=== PATIENT | female | born 1970 | race Hispanic/Latino ===

== ENCOUNTER 2017-07-19 15:26 | Outpatient (CLI) | payer SELFPAY | END 2017-07-19 15:27 | disposition home or self-care (01) | LOC: BICMAMMO 15:26 | PROVIDERS: ATTEND Family Medicine | DX: Z12.31 Encounter for screening mammogram for malignant neoplasm of breast (principal) | CPT/HCPCS: 77067 ==

== ENCOUNTER 2018-07-28 14:20 | Outpatient (CLI) | payer BC | END 2018-07-28 14:21 | disposition home or self-care (01) | LOC: BICMAMMO 14:20 | PROVIDERS: ATTEND Family Medicine | DX: Z12.31 Encounter for screening mammogram for malignant neoplasm of breast (principal); R92.1 Mammographic calcification found on diagnostic imaging of breast; N63.10 Unspecified lump in the right breast, unspecified quadrant | CPT/HCPCS: 77063; 77067 ==

== ENCOUNTER 2018-08-06 14:38 | Outpatient (CLI) | payer BC ==
--- NOTE | 2018-08-06 15:16 | ULT ---
LIMITED RIGHT BREAST ULTRASOUND: Date: 08-06-18 Provided Clinical History: Abnormal mammogram. FINDINGS: Correlation is made with screening mammogram dated 07-28-18. Limited sonographic interrogation of the 10 o'clock position of the right breast was performed in the region of mammographic concern. There is a 1.9 cm hypoechoic oval mass with somewhat indistinct elvis ins and no definite posterior shadowing present in the right breast in this location. IMPRESSION: BIRADS category 4 - suspicious abnormality. Ultrasounded guided biopsy is recommended. 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 POS: OFF
== END 2018-08-06 14:39 | disposition home or self-care (01) ==
LOC: BICULT 14:38
PROVIDERS: ATTEND Family Medicine
DX: N63.10 Unspecified lump in the right breast, unspecified quadrant (principal)

== ENCOUNTER → 2018-08-11 | Day surgery (SDC) | payer BC ==
--- NOTE | 2018-08-11 15:59 | ULT ---
RIGHT BREAST BIOPSY WITH ULTRASOUND GUIDANCE: HISTORY: Right breast mass. COMPARISON: 08/06/2018 FINDINGS: Successful right breast biopsy. A total of three 14 gauge core biopsy samples were obtained and plac ed in formalin. A post biopsy clip was placed. Clip position is appropriate. TECHNIQUE: Consent obtained to perform a right breast biopsy with ultrasound guidance. The lesion of concern wa s identified. The skin was prepped and draped in a sterile fashion. Lidocaine 1%, buffered with sod ium bicarbonate, was used for local anesthesia. Under ultrasound guidance, a 14 gauge biopsy needle was advanced, such that the tip was adjacent to the lesion. Three core samples were obtained and tk willy directly in formalin. A post biopsy mammogram was performed. The clip was appropriately positio malorie. The patient tolerated the procedure well. No immediate or post procedure complications. IMPRESSION: Successful ultrasound-guided biopsy. POS: ADÁN
== END ==
LOC: BICULT 12:35
PROVIDERS: ATTEND Family Medicine
PROC: 0HBT3ZX Excision of Right Breast, Percutaneous Approach, Diagnostic (ICD-10-PCS; principal; 2018-08-11)
DX: C50.411 Malignant neoplasm of upper-outer quadrant of right female breast (principal); Z17.0 Estrogen receptor positive status [ER+]; Z88.8 Allergy status to other drugs, medicaments and biological substances
CPT/HCPCS: 19083; 88305; 88341; 88342

== ENCOUNTER 2018-09-08 14:33 | Outpatient (CLI) | payer BC ==
[2018-09-08 15:56] LABS: #Eosinphils 0.2 thou/uL (0.0-0.7); #Monocytes 0.6 thou/uL (0.11-0.59); #Neutrophils 4.7 thou/uL (1.40-6.50); %Basophils 0.1 % (0.0-1.0); %Eosinophils 2.5 % (0.0-10.0); %Lymphocytes 35.1 % (21.0-51.0); %Monocytes 7.5 % (0.0-10.0); %Neutrophils 54.8 % (42.0-75.0); Hemoglobin 12.3 g/dL (12.0-16.0); Mean Corpuscular HGB CONC 31.6 g/dL (32.0-36.0); Mean Corpuscular Hemoglobin 25.2 pg (27.0-31.0); Mean Corpuscular Volume 79.6 fL (78.0-98.0); Mean Platelet Volume 7.1 fL (7.4-10.4); Platelet Count 304 thou/uL (130-400); RBC Distribution Width 14.6 % (11.5-14.5); Red Blood Cell (RBC) Count 4.89 mill/uL (4.20-5.40); White Blood Cell (WBC) Count 8.6 thou/uL (4.8-10.8)
[2018-09-08 16:08] LABS: BHCG - Serum Negative (NEGATIVE); Pregs Control Background? CLEAR/WHITE (CLR/WHITE); Pregs Control Bar Appear? YES (CONTROL BAR)
[2018-09-08 16:16] LABS: ALT (SGPT) 21 U/L (8-55); AST (SGOT) 16 U/L (5-34); Albumin 4.1 g/dL (3.5-5.0); Alkaline Phosphatase 99 U/L (40-150); Anion Gap 12 mmol/L (10-20); BUN (Urea Nitrogen) 10 mg/dL (7.0-18.7); Bilirubin, Direct 0.1 mg/dL (0.1-0.3); Bilirubin, Total 0.3 mg/dL (0.2-1.2); Calc. Creatinine Clearance 0 mL/min (70-130); Calcium 9.3 mg/dL (7.8-10.44); Carbon Dioxide 24 mmol/L (22-29); Chloride 108 mmol/L (98-107); Estimated GFR-MDRD 88; Globulin 3.7 g/dL (2.4-3.5); Glucose 100 mg/dL (70-105); Potassium 4.2 mmol/L (3.5-5.1); Protein, Total 7.8 g/dL (6.0-8.3); Sodium 140 mmol/L (136-145)
--- NOTE | 2018-09-08 20:47 | EKG ---
Test Reason : Blood Pressure : / mmHG Vent. Rate : 071 BPM Atrial Rate : 071 BPM P-R Int : 124 ms QRS Dur : 076 ms QT Int : 378 ms P-R-T Axes : 061 058 024 degrees QTc Int : 410 ms Normal sinus rhythm Borderline Short CT interval Confirmed by DR. Trae PEDRO ([id number]) on 09/08/2018 8:46:46 PM Referred By: CAROL Confirmed By:DR. Trae PEDRO
== END 2018-09-08 14:34 | disposition home or self-care (01) ==
LOC: LABBT 14:33
PROVIDERS: ATTEND Internal Medicine Cardiovascular Disease
DX: Z01.818 Encounter for other preprocedural examination (principal); C50.911 Malignant neoplasm of unspecified site of right female breast
CPT/HCPCS: 80053; 80076; 84703; 85025; 93005; 93010

== ENCOUNTER 2018-09-12 06:56 | Day surgery (SDC) | payer BC ==
[2018-09-08 14:26] VITALS: BMI 37.6
--- NOTE | 2018-09-12 09:18 | MMO ---
MAMMOGRAPHICALLY GUIDED NEEDLE LOCALIZATION RIGHT BREAST: DATE: 09/12/2018. HISTORY: Malignant neoplasm of upper outer quadrant of right breast. TECHNIQUE: Signed informed consent obtained. Lateral approach selected. Breast was compressed in true lateral position with fenestrated paddle. Lateral skin of breast was prepared and draped in the usual steril e fashion. A 25-gauge needle was used to apply buffered Lidocaine superficially and deeply. A 7.5 c m Cleaton needle was advanced from lateral approach. The breast was then compressed in craniocaudal po sition. Cleaton needle tip was withdrawn to appropriate position. Wire was deployed through the needl e. The patient tolerated the procedure well. No complications. FINDINGS: The final CC projection mammogram demonstrates Cleaton needle tip and wire slightly medial to the mammo graphic lateral mass containing biopsy clip. IMPRESSION: Technically successful needle localization of right breast mass. POS: ADÁN
--- NOTE | 2018-09-12 10:16 | NM ---
NUCLEAR MEDICINE LYMPHOSCINTIGRAPHY: HISTORY: Malignant neoplasm of site of unspecified breast. FINDINGS: 0.408 mCi Technetium 99m filtered sulfur colloid was injected into the subdermal and subcutaneous tis sues in the periareolar region of the right breast. Immediate imaging demonstrates 2 foci of lymph n ode activity in the right axilla. IMPRESSION: Two sentinel lymph nodes in the right axilla demonstrate activity. POS: ADÁN
[2018-09-12] MEDS ORDERED: Lidocaine 2% PF 5 ML VIAL ONE (10:23)
[2018-09-12] MEDS ORDERED: Isosulfan Blue 50 MG/5 ML VIAL ONE (10:23)
[2018-09-12] MEDS ORDERED: Bupivacaine/Epinephrine 0.25% 30 ML VIAL ONE (10:23)
[2018-09-12] MEDS ORDERED: Meperidine HCl/PF 25 MG/ML VIAL ONE (10:46)
[2018-09-12] MEDS ORDERED: Fentanyl 100 MCG/2 ML VIAL ONE ×2 (10:46→12:14)
[2018-09-12] MEDS ORDERED: Famotidine/PF 20 mg/2ml Vial ONE (10:46)
--- NOTE | 2018-09-12 14:42 | MMO ---
RADIOGRAPH SURGICAL SPECIMEN: 09/12/2018 HISTORY: A 47-year-old female with breast cancer involving the upper outer quadrant of the right breast. FINDINGS: The specimen contains the Twain wire, the biopsy clip, and the tumor mass itself. The tumor mass is at the periphery of the specimen. IMPRESSION: 1. Successful needle localization. 2. Successful surgical excisional biopsy. POS: ADÁN
--- NOTE | 2018-09-12 15:03 | OP ---
DATE OF PROCEDURE: 09/12/2018 PREOPERATIVE DIAGNOSIS: Right breast cancer. PROCEDURES PERFORMED: Lymphoscintigraphy, sentinel lymph node biopsy, and partial mastectomy. INDICATIONS: This is a 47-year-old female, who on mammogram was found to have a mass in the right breast, which was suspicious. Core needle biopsy positive for infiltrating ductal carcinoma. FINDINGS: Two sentinel lymph nodes were found. Her tumor was very posterior, it was right on the pectoralis muscle. It appeared though the pectoralis fascia was not penetrated. DESCRIPTION OF PROCEDURE: After informed consent was obtained, the patient was taken to the operating room and given general endotracheal anesthesia. She had undergone injection of radionucleotide as well as placement of a needle localization wire. Once under general endotracheal anesthesia, Lymphazurin was injected, subareolar and peritumoral 3 mL. Then, a Neoprobe was used, a baseline established with counts around 10. Transcutaneous counts of 400 were found. A transverse axillary incision performed. Subcu divided sharply. In-vivo counts of 1200 found and a blue node was found. This was dissected out. Efferent and afferent lymphatics were ligated with 3-0 Vicryl ties and ex vivo counts were 4000, sent as sentinel node 1. Then, another area of counts of 250 were found, another node was found. This was dissected out. Efferent and afferent lymphatics were ligated with 3-0 Vicryl ties. The node was ex vivo counts of 600, sent as sentinel node 2. Then, a curvilinear incision was performed in the right breast. The needle was brought through the skin and a core breast tissue excised around the needle to include the mass which was so deep that once we got close to it, we could palpate it and the mass was excised to include the pectoralis fascia, but it was right posterior. It was marked with a needle lateral. The blue suture anterior, black suture superior sent to mammography, which revealed it did contain the biopsy clip and wire sent to pathology for further analysis. Hemostasis was achieved utilizing electrocautery. Breast parenchyma reapproximated with interrupted 3-0 Vicryl. Skin closed with a running subcuticular 4-0 Rapide. The axilla was closed with interrupted 3-0 Vicryl and the skin closed with a running subcuticular 4-0 Rapide. Steri-Strips applied. Sterile bandage applied. The patient tolerated the procedure well, transferred to Recovery in good condition. Sponge and needle count verified correct x2. Job ID: [id number]
[2018-09-12] MEDS ORDERED: Ondansetron PF 4 MG/2 ML Vial ONE (17:11)
[2018-09-12] MEDS ORDERED: PROPOFOL 200 MG/20 ML VIAL ONE (17:11)
[2018-09-12] MEDS ORDERED: Dexamethasone 20 MG/5 ML VIAL ONE (17:11)
[2018-09-12] MEDS ORDERED: PHENYLEPHRINE-NS 100 MCG/ML 10 ML SYRINGE ONE (17:11)
[2018-09-12] MEDS ORDERED: Lidocaine 1% PF 5 ML VIAL ONE (17:11)
[2018-09-12] MEDS ORDERED: Metoclopramide HCl 10 MG/2 ML VIAL ONE (17:11)
== END 2018-09-12 15:05 | disposition home or self-care (01) ==
LOC: SDC 06:56
PROVIDERS: ATTEND Surgery
PROC: 07B50ZX Excision of Right Axillary Lymphatic, Open Approach, Diagnostic (ICD-10-PCS; principal; 2018-09-12)
PROC: 0HBT0ZZ Excision of Right Breast, Open Approach (ICD-10-PCS; principal; 2018-09-12)
DX: C50.411 Malignant neoplasm of upper-outer quadrant of right female breast (principal); C77.3 Secondary and unspecified malignant neoplasm of axilla and upper limb lymph nodes; I10 Essential (primary) hypertension; Z17.0 Estrogen receptor positive status [ER+]; Z88.8 Allergy status to other drugs, medicaments and biological substances
CPT/HCPCS: 19281; 76098; 78195; 88307; 88342; A9541; J0131; J1100; J2001; J2175; J2405; J2704; J2765; J3010; Q9968; S0028

== ENCOUNTER 2019-09-21 08:35 | Outpatient (CLI) | payer BC ==
--- NOTE | 2019-09-21 09:58 | MMO ---
Bilateral MAMMO Bilat Diag [facility]. CLINICAL HISTORY: Patient is 48 years old and is seen for diagnostic exam. The patient has no family history of breast cancer. The patient has no personal history of cancer. VIEWS: The views performed were: bilateral craniocaudal with tomosynthesis; bilateral mediolateral oblique with tomosynthesis; and bilateral mediolateral with tomosynthesis. FILMS COMPARED: The present examination has been compared to prior imaging studies performed at [facility] on 06/15/2015, 06/15/2016, 07/19/2017 and 07/28/2018. This study has been interpreted with the assistance of computer-aided detection. MAMMOGRAM FINDINGS: There are scattered fibroglandular densities. There is a post-surgical scar seen in the right breast. There are no suspicious masses, suspicious calcifications, or new areas of architectural distortion. IMPRESSION: THERE IS NO MAMMOGRAPHIC EVIDENCE OF MALIGNANCY. A ROUTINE FOLLOW-UP MAMMOGRAM IN 1 YEAR IS RECOMMENDED. THE RESULTS OF THIS EXAM WERE SENT TO THE PATIENT. ACR BI-RADS Category 2 - Benign finding MAMMOGRAPHY NOTE: 1. A negative mammogram report should not delay a biopsy if a dominant of clinically suspicious mass is present. 2. Approximately 10% to 15% of breast cancers are not detected by mammography. 3. Adenosis and dense breasts may obscure an underlying neoplasm. Reported by: La BRITT Electonically Signed: [id number]
== END 2019-09-21 08:36 | disposition home or self-care (01) ==
LOC: BICMAMMO 08:35
PROVIDERS: ATTEND Internal Medicine Hematology & Oncology
DX: C50.411 Malignant neoplasm of upper-outer quadrant of right female breast (principal)
CPT/HCPCS: 77066; G0279

== ENCOUNTER 2020-09-21 14:35 | Outpatient (CLI) | payer BC | END 2020-09-21 14:36 | disposition home or self-care (01) | LOC: BICMAMMO 14:35 | PROVIDERS: ATTEND Internal Medicine Hematology & Oncology | DX: C50.411 Malignant neoplasm of upper-outer quadrant of right female breast (principal) | CPT/HCPCS: 77066; G0279 ==

== ENCOUNTER 2021-09-29 09:23 | Outpatient (CLI) | payer BC | END 2021-09-29 09:24 | disposition home or self-care (01) | LOC: BICMAMMO 09:23 | PROVIDERS: ATTEND Internal Medicine Hematology & Oncology | DX: C50.411 Malignant neoplasm of upper-outer quadrant of right female breast (principal) | CPT/HCPCS: 77066; G0279 ==

== ENCOUNTER 2022-10-01 13:25 | Outpatient (CLI) | payer BC | END 2022-10-01 13:26 | disposition home or self-care (01) | LOC: BICMAMMO 13:25 | PROVIDERS: ATTEND Internal Medicine Hematology & Oncology | DX: Z08 Encounter for follow-up examination after completed treatment for malignant neoplasm (principal); Z85.3 Personal history of malignant neoplasm of breast | CPT/HCPCS: 77066; G0279 ==

== ENCOUNTER 2023-04-22 08:39 | Outpatient (CLI) | payer BC | END 2023-04-22 08:40 | disposition home or self-care (01) | LOC: ULT 08:39 | PROVIDERS: ATTEND Nurse Practitioner Family | DX: R74.01 Elevation of levels of liver transaminase levels (principal); K76.0 Fatty (change of) liver, not elsewhere classified; Z90.49 Acquired absence of other specified parts of digestive tract | CPT/HCPCS: 76705 ==